=== PATIENT | male | born 1950 | race Caucasian/White ===

== ENCOUNTER 2017-07-07 17:52 | Observation (INO) | payer OTHER ==
[~2017-07-07] VITALS: Ht 190.5 cm; Wt 125.0 kg
[2017-07-07] VITALS (7 sets, daily range): BP systolic 120–184; BP diastolic 71–104; PULSE 66–82; RESP 14–18; TEMP 98.2–98.5; O2SAT 95–100
[2017-07-07] MEDS ORDERED: HYDR25TA5 PO (18:05)
[2017-07-07] MEDS ORDERED: INDO50CA PO (18:05)
[2017-07-07] MEDS ORDERED: ATEN50TA PO (18:05)
--- NOTE | 2017-07-07 18:13 | PD ---
HPI Chief Complaint: Chest Pain Time Seen by Provider: 18:00 Travel History International Travel<30 days: No Contact w/Intl Traveler<30days: No Traveled to known affect area: No History of Present Illness HPI 66yo M with PMH of HLD, HTN was sent from primary care physician's office for evaluation of chest pain. Pt has been having intermittent midsternal chest pain for 2 weeks. Cannot really describe it but lasts about 15-20 min at a time. Associated with nausea and diaphoresis. No exacerbating or alleviating factors. Said they did an EKG at PMD's office and one of leads was flipped and concerning. Denies any fever but felt warm. Denies any sob, vomiting, abdominal pain, focal weakness or numbness. 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 Never had stress test. Did not take aspirin. PFSH Past Medical History Diminished Hearing: No Gout: Yes Hypertension: Yes Influenza Vaccination: No ?: Not Social History Alcohol Use: Yes (daily) Tobacco Use: No (dips) Allergies-Medications (Allergen,Severity, Reaction): Coded Allergies: bupropion (Verified Allergy, Severe, 07/07/17) propoxyphene (Verified Allergy, Severe, 07/07/17) Reported Meds & Prescriptions Reported Meds & Active Scripts Active Reported Indomethacin 50 Mg Cap 50 Mg PO TID Take with food, milk, or antacids to decrease stomach adverse effects. Atenolol 50 Mg Tab 50 Mg PO DAILY Hydrochlorothiazide 25 Mg Tab 25 Mg PO DAILY Review of Systems Except as stated in HPI: all other systems reviewed are Neg Physical Exam Narrative GENERAL: 66yo M in mild distress. SKIN: Focused skin assessment warm/dry. HEAD: Atraumatic. Normocephalic. EYES: Pupils equal and round. No scleral icterus. No injection or drainage. ENT: No nasal bleeding or discharge. Mucous membranes pink and moist. NECK: Trachea midline. No JVD. CARDIOVASCULAR: Regular rate and rhythm. No murmur appreciated. RESPIRATORY: No accessory muscle use. Clear to auscultation. Breath sounds equal bilaterally. GASTROINTESTINAL: Abdomen soft, non-tender, nondistended. MUSCULOSKELETAL: No obvious deformities. No clubbing. No cyanosis. No edema. NEUROLOGICAL: Awake and alert. No obvious cranial nerve deficits. Motor grossly within normal limits. Normal speech. PSYCHIATRIC: Appropriate mood and affect; insight and judgment normal. Data Data Last Documented VS Vital Signs Date Time Temp Pulse Resp B/P (MAP) Pulse Ox O2 Delivery O2 Flow Rate FiO2 07/07/17 23:00 98.5 66 14 127/83 (98) 96 Room Air Orders Orders Basic Metabolic Panel (Bmp) (07/07/17 18:07) Complete Blood Count With Diff (07/07/17 18:07) Magnesium (Mg) (07/07/17 18:07) Prothrombin Time / Inr (Pt) (07/07/17 18:07) Act Partial Throm Time (Ptt) (07/07/17 18:07) Troponin I (07/07/17 18:07) Lipase (07/07/17 18:07) Chest, Single Ap (07/07/17 18:07) Ecg Monitoring (07/07/17 18:07) Bilateral Bp Monitoring (07/07/17 18:07) Iv Access Insert/Monitor (07/07/17 18:07) Oximetry (07/07/17 18:07) Oxygen Administration (07/07/17 18:07) Aspirin (Aspirin) (07/07/17 18:15) Sodium Chloride 0.9% Flush (Ns Flush) (07/07/17 18:15) Nitroglycerin Sl (Nitrostat Sl) (07/07/17 18:15) Electrocardiogram (07/07/17 17:58) Ketorolac Inj (Toradol Inj) (07/07/17 20:00) Pantoprazole Inj (Protonix Inj) (07/07/17 20:00) Sodium Chlor 0.9% 250 Ml Inj (Ns 250 Ml (07/07/17 20:00) D-Dimer (07/07/17 20:00) Troponin I (07/07/17 22:38) Ckmb (Isoenzyme) Profile (07/07/17 22:38) Admit Order (Ed Use Only) (07/07/17 ) Gambling Box Person / Telemetry WILFRED.Q8H (07/07/17 22:56) Activity Oob With Assistance (07/07/17 22:56) Notify Dr: Other (07/07/17 22:56) Activity Bed Rest With Brp (07/07/17 22:56) Vital Signs (Adult) Q4H (07/07/17 22:56) Cardiac Rhythm .As Directed (07/07/17 22:56) Notify Dr: Other .PRN (07/07/17 22:56) Notify Parameters (07/07/17 22:56) Resp Oxygen Nasal Cannula (07/07/17 ) Ckmb (Isoenzyme) Profile (07/08/17 02:00) Ckmb (Isoenzyme) Profile (07/08/17 05:00) Troponin I (07/08/17 02:00) Troponin I (07/08/17 05:00) Electrocardiogram (07/07/17 22:56) Electrocardiogram (07/08/17 01:56) ^ Obtain (07/07/17 22:56) Sodium Chloride 0.9% Flush (Ns Flush) (07/07/17 23:00) Sodium Chloride 0.9% Flush (Ns Flush) (07/08/17 09:00) Nitroglycerin Sl (Nitrostat Sl) (07/07/17 23:00) Aspirin (Aspirin) (07/08/17 09:00) Gambling Box Person / Telemetry WILFRED.Q8H (07/07/17 22:56) ^ For Further Orders (07/07/17 22:56) CKMB (07/07/17 23:00) CKMB% (07/07/17 23:00) CKMB (07/08/17 01:45) CKMB% (07/08/17 01:45) CKMB (07/08/17 05:35) CKMB% (07/08/17 05:35) Labs Laboratory Tests Test 07/07/17 18:10 07/07/17 20:00 07/07/17 23:00 White Blood Count 8.2 TH/MM3 Red Blood Count 5.41 MIL/MM3 Hemoglobin 16.8 GM/DL Hematocrit 49.5 % Mean Corpuscular Volume 91.4 FL Mean Corpuscular Hemoglobin 31.1 PG Mean Corpuscular Hemoglobin Concent 34.0 % Red Cell Distribution Width 13.2 % Platelet Count 163 TH/MM3 Mean Platelet Volume 6.5 FL Neutrophils (%) (Auto) 77.6 % Lymphocytes (%) (Auto) 12.0 % Monocytes (%) (Auto) 6.0 % Eosinophils (%) (Auto) 1.2 % Basophils (%) (Auto) 3.2 % Neutrophils # (Auto) 6.3 TH/MM3 Lymphocytes # (Auto) 1.0 TH/MM3 Monocytes # (Auto) 0.5 TH/MM3 Eosinophils # (Auto) 0.1 TH/MM3 Basophils # (Auto) 0.3 TH/MM3 CBC Comment DIFF FINAL Differential Comment Blood Urea Nitrogen 25 MG/DL Creatinine 1.60 MG/DL Random Glucose 118 MG/DL Calcium Level 10.0 MG/DL Magnesium Level 2.2 MG/DL Sodium Level 138 MEQ/L Potassium Level 3.9 MEQ/L Chloride Level 104 MEQ/L Carbon Dioxide Level 24.5 MEQ/L Anion Gap 10 MEQ/L Estimat Glomerular Filtration Rate 44 ML/MIN Troponin I LESS THAN 0.02 NG/ML LESS THAN 0.02 NG/ML Lipase 170 U/L Prothrombin Time 10.5 SEC Prothromb Time International Ratio 1.0 RATIO Activated Partial Thromboplast Time 28.3 SEC D-Dimer Quantitative (PE/DVT) 0.26 MG/L FEU Total Creatine Kinase 263 U/L Creatine Kinase MB 5.1 NG/ML MDM Medical Decision Making Medical Screen Exam Complete: Yes Emergency Medical Condition: Yes Interpretation(s) EKG: NSR 76bpm. Normal axis. ?Q wave III. TWI III. Differential Diagnosis ACS vs. hypertensive emergency vs. pneumonia vs. GERD Narrative Course 66yo M with HTN and HLD here with chest pain that has been intermittent for 2 weeks. Patient given aspirin and sublingual nitro PRN chest pain. Sign out to next team to follow up labs, CXR and admit for chest pain center if enzymes negative. Diagnosis Primary Impression: Chest pain Qualified Codes: R07.9 - Chest pain, unspecified Admitting Information Admitting Physician Requests: Beth Pereira DO Jul 07, 2017 18:13
[2017-07-07] MEDS ORDERED: SODIUM CHLORIDE 0.9% FLUSH 10 ML FLUSH IVF PRN (18:15)
[2017-07-07] MEDS ORDERED: ASPIRIN 325 MG TAB PO ONE (18:15)
[2017-07-07 18:22] LABS: AUTOMATED NEUTROPHIL # 6.3 TH/MM3 (1.8-7.7); BASOPHIL # 0.3 TH/MM3 (0-0.2); BASOPHIL % 3.2 % (0.0-2.0); EOSINOPHIL # 0.1 TH/MM3 (0-0.4); EOSINOPHIL % 1.2 % (0.0-4.0); HEMATOCRIT 49.5 % (39.0-51.0); HEMOGLOBIN 16.8 GM/DL (13.0-17.0); MEAN CELL VOLUME 91.4 FL (80.0-100.0); MEAN CORPUSCULAR HEMOGLOBIN 31.1 PG (27.0-34.0); MEAN PLATELET VOLUME 6.5 FL (7.0-11.0); MONOCYTE # 0.5 TH/MM3 (0-0.9); NEUT % 77.6 % (16.0-70.0); PLATELET COUNT 163 TH/MM3 (150-450); RED BLOOD COUNT 5.41 MIL/MM3 (4.50-5.90); RED CELL DISTRIBUTION WIDTH 13.2 % (11.6-17.2); WHITE BLOOD COUNT 8.2 TH/MM3 (4.0-11.0)
[2017-07-07] MEDS: NITROGLYCERIN 0.4 MG SL 25 TABS/BTL SL SCH ×3 (18:25→18:35)
[2017-07-07 18:47] LABS: CHLORIDE 104 MEQ/L (98-107); SODIUM (NA) 138 MEQ/L (136-145)
[2017-07-07 18:50] LABS: BICARBONATE 24.5 MEQ/L (21.0-32.0); BLOOD UREA NITROGEN 25 MG/DL (7-18); GLUCOSE,RANDOM 118 MG/DL (74-106); LIPASE 170 U/L (73-393); MAGNESIUM 2.2 MG/DL (1.5-2.5)
[2017-07-07 18:53] LABS: GLOMERULAR FILTRATION RATE 44 ML/MIN (>89)
[2017-07-07 18:58] LABS: TROPONIN I LESS THAN 0.02 NG/ML (0.02-0.05)
--- NOTE | 2017-07-07 19:13 | RADRPT ---
EXAM DATE/TIME: 07/07/2017 18:46 [facility] COMPARISON: No previous studies available for comparison. INDICATIONS : Chest pain. MEDICAL HISTORY : Hypertension. SURGICAL HISTORY : None. ENCOUNTER: Initial ACUITY: 1 day PAIN SCORE: 6/10 LOCATION: Bilateral chest FINDINGS: A single view of the chest demonstrates the lungs to be symmetrically aerated without evidence of mas s, infiltrate or effusion. The cardiomediastinal contours are unremarkable. Osseous structures are intact. CONCLUSION: No acute disease. Pedro Luis Mitchell MD on July 07, 2017 at 19:11 Board Certified Radiologist. This report was verified electronically.
--- NOTE | 2017-07-07 19:43 | PD ---
Physical Exam Date Seen by Provider: Jul 07, 2017 Time Seen by Provider: 19:41 Narrative Accepted in transfer of care from Dr. Nunez GENERAL: Well developed well-nourished male in no acute distress no respiratory distress SKIN: Warm and dry. NECK: Supple, trachea midline. No JVD or lymphadenopathy. CARDIOVASCULAR: Regular rate and rhythm without murmurs, gallops, or rubs. RESPIRATORY: Breath sounds equal bilaterally. No accessory muscle use. Data Data Last Documented VS Vital Signs Date Time Temp Pulse Resp B/P (MAP) Pulse Ox O2 Delivery O2 Flow Rate FiO2 07/07/17 23:00 98.5 66 14 127/83 (98) 96 Room Air Orders Orders Basic Metabolic Panel (Bmp) (07/07/17 18:07) Complete Blood Count With Diff (07/07/17 18:07) Magnesium (Mg) (07/07/17 18:07) Prothrombin Time / Inr (Pt) (07/07/17 18:07) Act Partial Throm Time (Ptt) (07/07/17 18:07) Troponin I (07/07/17 18:07) Lipase (07/07/17 18:07) Chest, Single Ap (07/07/17 18:07) Ecg Monitoring (07/07/17 18:07) Bilateral Bp Monitoring (07/07/17 18:07) Iv Access Insert/Monitor (07/07/17 18:07) Oximetry (07/07/17 18:07) Oxygen Administration (07/07/17 18:07) Aspirin (Aspirin) (07/07/17 18:15) Sodium Chloride 0.9% Flush (Ns Flush) (07/07/17 18:15) Nitroglycerin Sl (Nitrostat Sl) (07/07/17 18:15) Electrocardiogram (07/07/17 17:58) Ketorolac Inj (Toradol Inj) (07/07/17 20:00) Pantoprazole Inj (Protonix Inj) (07/07/17 20:00) Sodium Chlor 0.9% 250 Ml Inj (Ns 250 Ml (07/07/17 20:00) D-Dimer (07/07/17 20:00) Troponin I (07/07/17 22:38) Ckmb (Isoenzyme) Profile (07/07/17 22:38) Electrocardiogram (07/07/17 ) Admit Order (Ed Use Only) (07/07/17 ) Account Services Analyst / Telemetry WILFRED.Q8H (07/07/17 22:56) Activity Oob With Assistance (07/07/17 22:56) Notify Dr: Other (07/07/17 22:56) Activity Bed Rest With Brp (07/07/17 22:56) Vital Signs (Adult) Q4H (07/07/17 22:56) Cardiac Rhythm .As Directed (07/07/17 22:56) Notify Dr: Other .PRN (07/07/17 22:56) Notify Parameters (07/07/17 22:56) Resp Oxygen Nasal Cannula (07/07/17 ) Ckmb (Isoenzyme) Profile (07/08/17 02:00) Ckmb (Isoenzyme) Profile (07/08/17 05:00) Troponin I (07/08/17 02:00) Troponin I (07/08/17 05:00) Electrocardiogram (07/07/17 22:56) Electrocardiogram (07/08/17 01:56) ^ Obtain (07/07/17 22:56) Sodium Chloride 0.9% Flush (Ns Flush) (07/07/17 23:00) Sodium Chloride 0.9% Flush (Ns Flush) (07/08/17 09:00) Nitroglycerin Sl (Nitrostat Sl) (07/07/17 23:00) Aspirin (Aspirin) (07/08/17 09:00) Account Services Analyst / Telemetry WILFRED.Q8H (07/07/17 22:56) ^ For Further Orders (07/07/17 22:56) CKMB (07/07/17 23:00) CKMB% (07/07/17 23:00) Labs Laboratory Tests Test 07/07/17 18:10 07/07/17 20:00 07/07/17 23:00 White Blood Count 8.2 TH/MM3 Red Blood Count 5.41 MIL/MM3 Hemoglobin 16.8 GM/DL Hematocrit 49.5 % Mean Corpuscular Volume 91.4 FL Mean Corpuscular Hemoglobin 31.1 PG Mean Corpuscular Hemoglobin Concent 34.0 % Red Cell Distribution Width 13.2 % Platelet Count 163 TH/MM3 Mean Platelet Volume 6.5 FL Neutrophils (%) (Auto) 77.6 % Lymphocytes (%) (Auto) 12.0 % Monocytes (%) (Auto) 6.0 % Eosinophils (%) (Auto) 1.2 % Basophils (%) (Auto) 3.2 % Neutrophils # (Auto) 6.3 TH/MM3 Lymphocytes # (Auto) 1.0 TH/MM3 Monocytes # (Auto) 0.5 TH/MM3 Eosinophils # (Auto) 0.1 TH/MM3 Basophils # (Auto) 0.3 TH/MM3 CBC Comment DIFF FINAL Differential Comment Blood Urea Nitrogen 25 MG/DL Creatinine 1.60 MG/DL Random Glucose 118 MG/DL Calcium Level 10.0 MG/DL Magnesium Level 2.2 MG/DL Sodium Level 138 MEQ/L Potassium Level 3.9 MEQ/L Chloride Level 104 MEQ/L Carbon Dioxide Level 24.5 MEQ/L Anion Gap 10 MEQ/L Estimat Glomerular Filtration Rate 44 ML/MIN Troponin I LESS THAN 0.02 NG/ML LESS THAN 0.02 NG/ML Lipase 170 U/L Prothrombin Time 10.5 SEC Prothromb Time International Ratio 1.0 RATIO Activated Partial Thromboplast Time 28.3 SEC D-Dimer Quantitative (PE/DVT) 0.26 MG/L FEU Total Creatine Kinase 263 U/L MDM Medical Record Reviewed: Yes Supervised Visit with VIOLETTA: No Interpretation(s) D-dimer: 0.26, not elevated Troponin I: Less than 0.02, not elevated Last Impressions Chest X-Ray 07/07/17 180 Signed Impressions: Service Date/Time: Friday, July 07, 2017 18:46 - CONCLUSION: No acute disease. Pedro Luis Mitchell MD CBC & BMP Diagram 07/07/17 18:10 Calcium Level 10.0, Magnesium Level 2.2 Vital Signs Date Time Temp Pulse Resp B/P (MAP) Pulse Ox O2 Delivery O2 Flow Rate FiO2 07/07/17 23:00 98.5 66 14 127/83 (98) 96 Room Air 07/07/17 19:00 14 07/07/17 18:40 82 17 120/71 (87) 95 Room Air 07/07/17 18:35 79 17 145/74 (97) 97 Room Air 07/07/17 18:30 80 17 139/71 (93) 97 Room Air 07/07/17 18:25 75 17 168/98 (121) 97 Room Air 07/07/17 18:13 75 18 167/103 (124) 100 Room Air 07/07/17 18:12 100 Room Air 07/07/17 18:08 98.2 79 18 184/104 (130) 100 Differential Diagnosis Accepted in transfer of care from Dr. Nunez; please refer to her dictation Narrative Course Accepted in transfer of care from Dr. Nunez; plan for [facility] obs admission labs pending Is 7:40 PM patient continues to complain of 4/10 chest discomfort that is a constant pain since 11 AM for significant cardiac enzymes are found to be in normal range patient has been having similar symptoms on and off for 2 weeks and also complains of a charley horse-like discomfort to left side of his chest since last 2-5 minutes and resolved spontaneously. Patient has had some associated nausea no referred neck jaw back shoulder or mid scapular abdominal pain. Patient's had no vomiting or sweats. Patient has been recently symptomatic with sinus infection. Patient's had subjective fever. Patient denies any cough. Patient does not currently have any shortness of breath and has had no hemoptysis. No recent long distance travel protracted bedrest her surgical procedure. Patient's had no calf pain or swelling. Patient administered one time dose of Toradol 30 mg IV Protonix 3 mg IV; patient's d- dimer is pending. @ 8:45 PM pain has diminished D-dimer not elevated patient's case discussed with on-call [facility] for 23 hr [facility] obs admission Physician Communication Physician Communication discussed with Dr Fuentes Diagnosis Primary Impression: Chest pain Additional Impression: Renal insufficiency Admitting Information Admitting Physician Requests: Observation Catherine Moore MD Jul 07, 2017 19:43
[2017-07-07] MEDS ORDERED: PANTOPRAZOLE SODIUM 40 MG VIAL IV PUSH ONE (20:00)
[2017-07-07] MEDS ORDERED: KETOROLAC TROMETHAMINE 30 MG/ML (IVP) VIAL IV PUSH ONE (20:00)
[2017-07-07] MEDS ORDERED: SODIUM CHLOR 0.9% 250 ML INJ 250 ML IV ONE (20:00)
--- NOTE | 2017-07-07 21:26 | EKG ---
Date Performed: 07/07/2017 Time Performed: 17:58:07 PTAGE: 66 years EKG: Sinus rhythm NORMAL ECG NO PREVIOUS TRACING DOCTOR: Jovan Newell Interpretating Date/Time 07/07/2017 21:25:44
--- NOTE | 2017-07-07 21:26 | EKG ---
Date Performed: 07/07/2017 Time Performed: 17:58:07 PTAGE: 66 years EKG: Sinus rhythm NORMAL ECG NO PREVIOUS TRACING DOCTOR: Jovan Newell Interpretating Date/Time 07/07/2017 21:25:44
--- NOTE | 2017-07-07 21:26 | EKG ---
Date Performed: 07/07/2017 Time Performed: 17:58:07 PTAGE: 66 years EKG: Sinus rhythm NORMAL ECG NO PREVIOUS TRACING DOCTOR: Jovan Newell Interpretating Date/Time 07/07/2017 21:25:44
[2017-07-07 21:32] LABS: D-DIMER 0.26 MG/L FEU (0.00-0.50); PROTHROMBIN TIME - PATIENT 10.5 SEC (9.8-11.6)
[2017-07-07] MEDS ORDERED: SODIUM CHLORIDE 0.9% FLUSH 10 ML FLUSH IV FLUSH PRN (23:00)
[2017-07-07] MEDS ORDERED: NITROGLYCERIN 0.4 MG SL 25 TABS/BTL SL PRN (23:00)
[2017-07-07 23:36] LABS: TROPONIN I LESS THAN 0.02 NG/ML (0.02-0.05)
[2017-07-08] VITALS: BP 142/85; PULSE 70; RESP 18; TEMP 97.3; O2SAT 97
[2017-07-08 00:32] VITALS: PULSE 72
[2017-07-08 02:00] VITALS: O2SAT 96
[2017-07-08 02:14] LABS: TROPONIN I LESS THAN 0.02 NG/ML (0.02-0.05)
[2017-07-08 04:00] VITALS: BP 123/59; PULSE 65; RESP 18; TEMP 96.4; O2SAT 96
[2017-07-08 06:49] LABS: TROPONIN I LESS THAN 0.02 NG/ML (0.02-0.05)
[2017-07-08 08:00] VITALS: BP 133/79; PULSE 81; RESP 18; TEMP 97.5; O2SAT 96
[2017-07-08] MEDS ORDERED: SODIUM CHLORIDE 0.9% FLUSH 10 ML FLUSH IV FLUSH SCH (09:00)
[2017-07-08] MEDS ORDERED: ASPIRIN 325 MG TAB PO SCH (09:00)
--- NOTE | 2017-07-08 09:46 | HHI.HP ---
[facility] Service [facility] [place] Primary Care Physician Bacilio Colbert MD Admission Diagnosis Chest pain Diagnoses: (1) Chest pain Chief Complaint: Chest pain Travel History International Travel<30 Days: No Contact w/Intl Traveler <30 Da: No Traveled to Known Affected Are: No History of Present Illness Mr. Reinoso is a 66-year-old male patient with a known medical history of hypertension, hyperlipidemia, gout and alcohol use who presented to the ED with complaints of chest pain. Patient states that the chest pain has been on and off for the last 2 weeks and since he had an appointment with his PCP scheduled for yesterday he decided to put off coming to the ED. While being seen in his PCP office he was in apparent distress and sent here for evaluation. Patient states that the chest pain can be described in two ways. At times the pain can be located in his midsternal chest, a 1/10 on pain scale, pressure-like in nature and intermittently comes and goes. The other type of pain in located in his left chest area, described as a "leonora horse" and "way deep inside my chest pain". Comes on randomly, mostly at rest, for 2-5 minutes and slowly goes away. Denies any radiation of pain. Does admit to associated diaphoresis and shortness of breath, denies any nausea or vomiting. Denies any recent changes in his medications. Denies any recent illness including fever, chills, headache , cough, abdominal pain, nausea, vomiting, diarrhea or dysuria. Denies any prior cardiac stress testing. Denies ever seeing a underwriting manager or ever having this type of pain in the past. Does admit to having increased cholesterol but has not been prescribed any medications for this. As well as having possible borderline DM but this has not been diagnosed. Review of Systems Constitutional: DENIES: Fever Endocrine: DENIES: Polyuria Respiratory: DENIES: Cough, Shortness of breath Cardiovascular: COMPLAINS OF: Chest pain, Palpitations Gastrointestinal: DENIES: Abdominal pain, Constipation, Diarrhea, Nausea, Vomiting Genitourinary: DENIES: Urinary incontinence, Dysuria Musculoskeletal: DENIES: Joint pain Psychiatric: COMPLAINS OF: Anxiety Except as stated in HPI: all other systems reviewed are Neg Past Family Social History Past Medical History Hypertension Hyperlipidemia Gout Possible borderline diabetes Past Surgical History Cholecystectomy Reported Medications Active Reported Indomethacin 50 Mg Cap 50 Mg PO TID Take with food, milk, or antacids to decrease stomach adverse effects. Atenolol 50 Mg Tab 50 Mg PO DAILY Hydrochlorothiazide 25 Mg Tab 25 Mg PO DAILY Allergies: Coded Allergies: bupropion (Verified Allergy, Severe, 07/07/17) propoxyphene (Verified Allergy, Severe, 07/07/17) Active Ordered Medications Current Medications Medications (Trade) Dose Ordered Sig/Redd Route Start Time Stop Time Status Last Admin (NS Flush) 2 ml UNSCH PRN IV FLUSH 07/07/17 23:00 (NS Flush) 2 ml BID IV FLUSH 07/08/17 09:00 (Nitrostat Sl) 0.4 mg Q5M PRN SL 07/07/17 23:00 (Aspirin) 325 mg DAILY PO 07/08/17 09:00 Family History Family medical history significant for hypertension. Social History Does admit to drinking a few beers and some whiskey daily. Does admit to chewing tobacco daily. Denies any cigarette use. Denies any illicit drug use. Physical Exam Vital Signs Vital Signs Date Time Temp Pulse Resp B/P (MAP) Pulse Ox O2 Delivery O2 Flow Rate FiO2 07/08/17 08:00 97.5 81 18 133/79 (97) 96 07/08/17 04:00 96.4 65 18 123/59 (80) 96 07/08/17 02:00 96 21 07/08/17 00:32 72 07/08/17 00:00 97.3 70 18 142/85 (104) 97 07/07/17 23:37 07/07/17 23:02 14 07/07/17 23:00 98.5 66 14 127/83 (98) 96 Room Air 07/07/17 19:00 14 07/07/17 18:40 82 17 120/71 (87) 95 Room Air 07/07/17 18:35 79 17 145/74 (97) 97 Room Air 07/07/17 18:30 80 17 139/71 (93) 97 Room Air 07/07/17 18:25 75 17 168/98 (121) 97 Room Air 07/07/17 18:13 75 18 167/103 (124) 100 Room Air 07/07/17 18:12 100 Room Air 07/07/17 18:08 98.2 79 18 184/104 (130) 100 Physical Exam GENERAL: This is a well-nourished, well-developed male patient, lying in bed in no apparent distress. SKIN: No rashes, ecchymoses or lesions. Warm and dry. HEENT: Atraumatic. Normocephalic. Pupils equal round and reactive. Extraocular motions intact. No scleral icterus. No injection or drainage. Nose without bleeding, purulent drainage or septal hematoma. Throat without erythema, tonsillar hypertrophy or exudate. Uvula midline. Airway patent. NECK: Trachea midline. No JVD. Supple. CARDIOVASCULAR: Regular rate and rhythm without murmurs, gallops, or rubs. RESPIRATORY: Clear to auscultation. Breath sounds equal bilaterally. No wheezes , rales, or rhonchi. GASTROINTESTINAL: Abdomen rounded, soft non-tender, nondistended. No guarding. Active bs x 4. MUSCULOSKELETAL: Extremities without clubbing, cyanosis, or edema. No joint tenderness, effusion, or edema noted. NEUROLOGICAL: Awake and alert. Cranial nerves II through XII intact. Motor and sensory grossly within normal limits. Five out of 5 muscle strength in all muscle groups. Normal speech. Laboratory Laboratory Tests Test 07/07/17 18:10 07/07/17 20:00 07/07/17 23:00 07/08/17 01:45 White Blood Count 8.2 Red Blood Count 5.41 Hemoglobin 16.8 Hematocrit 49.5 Mean Corpuscular Volume 91.4 Mean Corpuscular Hemoglobin 31.1 Mean Corpuscular Hemoglobin Concent 34.0 Red Cell Distribution Width 13.2 Platelet Count 163 Mean Platelet Volume 6.5 Neutrophils (%) (Auto) 77.6 Lymphocytes (%) (Auto) 12.0 Monocytes (%) (Auto) 6.0 Eosinophils (%) (Auto) 1.2 Basophils (%) (Auto) 3.2 Neutrophils # (Auto) 6.3 Lymphocytes # (Auto) 1.0 Monocytes # (Auto) 0.5 Eosinophils # (Auto) 0.1 Basophils # (Auto) 0.3 CBC Comment DIFF FINAL Differential Comment Blood Urea Nitrogen 25 Creatinine 1.60 Random Glucose 118 Calcium Level 10.0 Magnesium Level 2.2 Sodium Level 138 Potassium Level 3.9 Chloride Level 104 Carbon Dioxide Level 24.5 Anion Gap 10 Estimat Glomerular Filtration Rate 44 Troponin I LESS THAN 0.02 LESS THAN 0.02 LESS THAN 0.02 Lipase 170 Prothrombin Time 10.5 Prothromb Time International Ratio 1.0 Activated Partial Thromboplast Time 28.3 D-Dimer Quantitative (PE/DVT) 0.26 Total Creatine Kinase 263 256 Creatine Kinase MB 5.1 5.0 Test 07/08/17 05:35 Total Creatine Kinase 234 Creatine Kinase MB 4.6 Troponin I LESS THAN 0.02 Result Diagram: 07/07/17180907/07/171809 Imaging Last Impressions Chest X-Ray 07/07/171806 Signed Impressions: Service Date/Time: Friday, July 07, 2017 18:46 - CONCLUSION: No acute disease. MD Austin Chan VTE Risk Assessment Austin VTE Risk Assessment: Mod/High Risk (score >= 2) Caprini Risk Assessment Model Point Value = 1 Point Value = 2 Point Value = 3 Point Value = 5 Age 41-60 Minor surgery BMI > 25 kg/m2 Swollen legs Varicose veins or History of unexplained or recurrent spontaneous Oral contraceptives or hormone replacement Sepsis (< 1 month) Serious lung disease, including pneumonia (< 1 month) Abnormal pulmonary function Acute myocardial infarction Congestive heart failure (< 1 month) History of inflammatory bowel disease Medical patient at bed rest Age 61-74 Arthroscopic surgery Major open surgery (> 45 min) Laparoscopic surgery (> 45 min) Malignancy Confined to bed (> 72 hours) Immobilizing plaster cast Central venous access Age >= 75 History of VTE Family history of VTE Factor V Leiden Prothrombin [id number] Lupus anticoagulant Anticardiolipin antibodies Elevated serum homocysteine Heparin-induced thrombocytopenia Other congenital or acquired thrombophilia Stroke (< 1 month) Elective arthroplasty Hip, pelvis, or leg fracture Acute spinal cord injury (< 1 month) Prophylaxis Regimen Total Risk Factor Score Risk Level Prophylaxis Regimen 0-1 Low Early ambulation 2 Moderate Order ONE of the following: *Sequential Compression Device (SCD) *Heparin 5000 units SQ BID 3-4 Higher Order ONE of the following medications: *Heparin 5000 units SQ TID *Enoxaparin/Lovenox 40 mg SQ daily (WT < 150 kg, CrCl > 30 mL/min) *Enoxaparin/Lovenox 30 mg SQ daily (WT < 150 kg, CrCl > 10-29 mL/min) *Enoxaparin/Lovenox 30 mg SQ BID (WT < 150 kg, CrCl > 30 mL/min) AND/OR *Sequential Compression Device (SCD) 5 or more Highest Order ONE of the following medications: *Heparin 5000 units SQ TID (Preferred with Epidurals) *Enoxaparin/Lovenox 40 mg SQ daily (WT < 150 kg, CrCl > 30 mL/min) *Enoxaparin/Lovenox 30 mg SQ daily (WT < 150 kg, CrCl > 10-29 mL/min) *Enoxaparin/Lovenox 30 mg SQ BID (WT < 150 kg, CrCl > 30 mL/min) AND *Sequential Compression Device (SCD) Assessment and Plan Assessment and Plan Mr. Reinoso is a 66-year-old male patient with a known medical history of hypertension, hyperlipidemia, gout and alcohol use who presented to the ED with complaints of chest pain. Patient states that the chest pain has been on and off for the last 2 weeks and since he had an appointment with his PCP scheduled for yesterday he decided to put off coming to the ED. While being seen in his PCP office he was in apparent distress and sent here for evaluation. Chest pain - Admitted to the chest pain center. Serial EKGs and serial troponins ordered to rule out any ischemia. Nuclear stress test ordered and await results. Toradol given in ED with minimal relief of pain. Aspirin and Nitroglycerin given with minimal pain relief. Further treatment course will depend on results of the nuclear images. Continue to follow. Supportive care. Hypertension, chronic: Controlled at this time. Monitor BP trend. Restart home atenolol will hold HCTZ for now due to LIOR. Acute kidney injury: Patient on Indomethacin at home for gout, may be cause. Will start on IVF. Hold indomethacin. History of Gout: Hold home Indomethacin due to LIOR. Alcohol abuse: Encouraged cessation, patient counselled. *Spoke with Dr. Ray information systems security specialist underwriting manager today. Updated about patient status and results of nuclear stress test. Dr. Ray reviewed imaging and shows apical artifact with possible small ischemic area with advice to treat medically, and OK to discharge. Recommendations to follow up in the outpatient setting. Will start on full dose aspirin and nitrate. Encouraged patient to follow up outpatient and avoid any strenuous activity. If chest pain returns encouraged to return to the ED. Encouraged to stop Indomethacin and follow with PCP regarding creatinine. Follow up outpatient labs. Mica Llanos Jul 08, 2017 09:46
--- NOTE | 2017-07-08 11:40 | EKG ---
Date Performed: 07/08/2017 Time Performed: 01:43:35 PTAGE: 66 years EKG: Sinus rhythm BORDERLINE ECG PREVIOUS TRACING : 07/07/2017 22.54 Since previous tracing, no significant change noted DOCTOR: Karsten Lilly Interpretating Date/Time 07/08/2017 11:39:04
--- NOTE | 2017-07-08 11:42 | EKG ---
Date Performed: 07/07/2017 Time Performed: 22:54:36 PTAGE: 66 years EKG: Sinus rhythm NORMAL ECG PREVIOUS TRACING : 07/07/2017 17.58 Since previous tracing, no significant change noted DOCTOR: Karsten Lilly Interpretating Date/Time 07/08/2017 11:40:37
[2017-07-08 12:00] VITALS: BP 131/82; PULSE 77; RESP 17; TEMP 97.8; O2SAT 95
[2017-07-08] MEDS ORDERED: SODIUM CHLOR 0.9% 1000 ML INJ 1,000 ML IV SCH (12:00)
[2017-07-08] MEDS ORDERED: REGADENOSON INJ 0.4 MG/5 ML SYR IV ONE (12:01)
--- NOTE | 2017-07-08 12:37 | RADRPT ---
EXAM DATE/TIME: 07/08/2017 11:13 [place] COMPARISON: No previous studies available for comparison. INDICATIONS : Midsternal chest pain with nausea and diaphoresis. Angina. Abnormal EKG. DOSE: 35 mCi Tc99m Myoview at stress. 11 mCi Tc99m Myoview at rest. 0.4 mg Lexiscan STRESS SYMPTOMS: Chest tightness. EJECTION FRACTION: 52% MEDICAL HISTORY : Hypertension. SURGICAL HISTORY : Cholecystectomy. ENCOUNTER: Initial ACUITY: 2 weeks PAIN SCALE: 6/10 LOCATION: Midsternal chest TECHNIQUE: The patient underwent pharmacologic stress with infusion of prescribed dose. Continuous ECG tracing was monitored during stress. Gated SPECT imaging was performed after stress and conventional SPECT i maging was performed at rest. The examination was performed on a SPECT/CT scanner, both attenuation and non-corrected datasets were reviewed. FINDINGS: DISTRIBUTION: The maximum perfused segment at stress is in the anterior lateral wall. PERFUSION STUDY: There is a small perfusion defect involving the apex on the stress images which demonstrates perfusio n on the rest images. GATED STUDY: There is intact wall motion and thickening without hypokinetic or dyskinetic segments. CONCLUSION: 1. Small focal reversible defect involving the apex which could indicate a small area of ischemia. 2. Normal wall motion and calculated ejection fraction. RISK CATEGORY: Intermediate (1-3% Annual Mortality Rate) Pedro Luis Mitchell MD on July 08, 2017 at 12:33 Board Certified Radiologist. This report was verified electronically.
--- NOTE | 2017-07-08 13:28 | HHI.DCPOC ---
Discharge Care Plan Diagnosis: (1) Chest pain (2) Renal insufficiency Your Health Problems Are: Chest Pain Goals to Promote Your Health * To prevent worsening of your condition and complications * To maintain your health at the optimal level Directions to Meet Your Goals Take your medications as prescribed Follow your dietary instruction Follow activity as directed Keep your appointments as scheduled Take your immunizations and boosters as scheduled If your symptoms worsen call your PCP, if no PCP go to Urgent Care Center or Emergency Room Smoking is Dangerous to Your Health. Avoid second hand smoke Call the 24-hour hour crisis hotline for domestic abuse at Mica Llanos Jul 08, 2017 13:28
--- NOTE | 2017-07-08 13:28 | HHI.DCPOC ---
Discharge Care Plan Diagnosis: (1) Chest pain (2) Renal insufficiency Your Health Problems Are: Chest Pain Goals to Promote Your Health * To prevent worsening of your condition and complications * To maintain your health at the optimal level Directions to Meet Your Goals Take your medications as prescribed Follow your dietary instruction Follow activity as directed Keep your appointments as scheduled Take your immunizations and boosters as scheduled If your symptoms worsen call your PCP, if no PCP go to Urgent Care Center or Emergency Room Smoking is Dangerous to Your Health. Avoid second hand smoke Call the 24-hour hour crisis hotline for domestic abuse at Mica Llanos Jul 08, 2017 13:28
--- NOTE | 2017-07-08 13:28 | HHI.DCPOC ---
Discharge Care Plan Diagnosis: (1) Chest pain (2) Renal insufficiency Your Health Problems Are: Chest Pain Goals to Promote Your Health * To prevent worsening of your condition and complications * To maintain your health at the optimal level Directions to Meet Your Goals Take your medications as prescribed Follow your dietary instruction Follow activity as directed Keep your appointments as scheduled Take your immunizations and boosters as scheduled If your symptoms worsen call your PCP, if no PCP go to Urgent Care Center or Emergency Room Smoking is Dangerous to Your Health. Avoid second hand smoke Call the 24-hour hour crisis hotline for domestic abuse at Mica Llanos Jul 08, 2017 13:28
[2017-07-08] MEDS ORDERED: NITR0.4S SL (13:30)
[2017-07-08] MEDS ORDERED: ISOS60TA PO (13:30)
[2017-07-08] MEDS ORDERED: ASPI325T PO (13:30)
[2017-07-08] MEDS ORDERED: ATOR40TA16 PO (13:30)
[2017-07-08 16:06] LABS: CHOLESTEROL/ HDL RATIO 4.08 RATIO; HDL CHOLESTEROL 45.3 MG/DL (40.0-60.0)
[2017-07-08] MEDS ORDERED: ATORVASTATIN 40 MG TAB PO SCH (21:00)
[2017-07-09] MEDS ORDERED: ISOSORBIDE MONONITRATE 60 MG TAB PO SCH (07:00)
[2017-07-09] MEDS ORDERED: ATENOLOL 50 MG TAB PO SCH (09:00)
[2017-07-09] MEDS ORDERED: HYDROCHLOROTHIAZIDE 25 MG TAB PO SCH (09:00)
--- NOTE | 2017-07-13 09:06 | TR ---
Date Performed: 07/08/2017 Time Performed: 11:40:16 DOCTOR: Karsten Lilly DRUG LIST: CLINICAL HISTORY: CHEST PAIN REASON FOR TEST: Chest pain REASON FOR ENDING: OBSERVATION: CONCLUSION: Lexiscan stress test was performed under standard four minute protocol. Radionuclid e was injected one minute prior to ending the test. No electrocardiographic abormalities were present to suggest ischemia. Nuclear imaging and interpretation are pending. COMMENTS:
== END 2017-07-08 15:49 | disposition home or self-care (01) ==
LOC: PHED 17:52 → PHEDA 23:00 → PH3B 23:45
PROVIDERS: ADMIT Family Medicine; ATTEND Family Medicine
DX: R07.2 Precordial pain (principal); I10 Essential (primary) hypertension; N17.9 Acute kidney failure, unspecified; M10.9 Gout, unspecified; F10.10 Alcohol abuse, uncomplicated; R61 Generalized hyperhidrosis; R11.0 Nausea; E78.5 Hyperlipidemia, unspecified; G47.30 Sleep apnea, unspecified
CPT/HCPCS: 71010; 78452; 80048; 80061; 82550; 82552; 83690; 83735; 84484; 85025; 85379; 85610; 85730; 93005; 93017; 96361; 96374; 96375; 96376; 99285; A9502; C9113; G0378; J1885; J2785; J7030; J7050

== ENCOUNTER 2017-07-21 11:57 | Day surgery (SDC) | payer OTHER ==
[~2017-07-21] VITALS: Ht 190.5 cm; Wt 125.5 kg
[~2017-07-21 11:57] MED LIST: ASPI-183 PO; ATEN50TA PO; ATOR40TA16 PO; ISOS60TA PO; NITR0.4S SL
[2017-07-21] MEDS ORDERED: IOHEXOL 350 MG/ML 50 ML BTL (for Cath Lab) OTHER ONE (11:58)
[2017-07-21 12:40] VITALS: BP 139/81; PULSE 79; RESP 18; TEMP 97.9; O2SAT 99
[2017-07-21] MEDS ORDERED: OMEP20TA93 PO (12:48)
[2017-07-21] MEDS ORDERED: INDO50CA PO (12:48)
[2017-07-21] MEDS ORDERED: HYDR25TA5 PO (12:48)
[2017-07-21] MEDS ORDERED: LOSA50TA PO (12:48)
[2017-07-21] MEDS ORDERED: CLAR10CA3 PO (12:48)
[2017-07-21] MEDS ORDERED: VALS1TAB64 PO (12:48)
[2017-07-21 12:49] LABS: AUTOMATED NEUTROPHIL # 6.4 TH/MM3 (1.8-7.7); BASOPHIL % 0.4 % (0.0-2.0); EOSINOPHIL # 0.2 TH/MM3 (0-0.4); EOSINOPHIL % 1.8 % (0.0-4.0); HEMATOCRIT 40.6 % (39.0-51.0); LYMPH % 13.3 % (9.0-44.0); LYMPHOCYTE # 1.1 TH/MM3 (1.0-4.8); MEAN CELL VOLUME 91.2 FL (80.0-100.0); MEAN CORPUSCULAR HEMOGLOBIN 32.8 PG (27.0-34.0); MONO % 6.9 % (0.0-8.0); NEUT % 77.6 % (16.0-70.0); PLATELET COUNT 177 TH/MM3 (150-450); RED BLOOD COUNT 4.46 MIL/MM3 (4.50-5.90); RED CELL DISTRIBUTION WIDTH 13.6 % (11.6-17.2); WHITE BLOOD COUNT 8.2 TH/MM3 (4.0-11.0)
[2017-07-21 12:55] LABS: HEMO FLAGS AUTO DIFF
[2017-07-21] MEDS ORDERED: NS 1000P @30 MLS/HR (KVO) IV SCH (13:00)
[2017-07-21 13:02] LABS: PROTHROMBIN TIME - PATIENT 10.5 SEC (9.8-11.6)
[2017-07-21 13:06] LABS: BICARBONATE 25.6 MEQ/L (21.0-32.0); POTASSIUM 4.1 MEQ/L (3.5-5.1)
[2017-07-21 13:47] LABS: SCAN/DIFF AUTO DIFF CONFIRMED
[2017-07-21] MEDS ORDERED: MIDAZOLAM HCL 2 MG/2 ML VIAL ONE (13:55)
[2017-07-21] MEDS ORDERED: HEPARIN-NS/PF INJ 500 ML ONE (13:55)
[2017-07-21] MEDS ORDERED: NITROGLYCERIN INJ 5 ML ONE (13:55)
[2017-07-21] MEDS ORDERED: SODIUM CHLOR 0.9% 1000 ML INJ 1,000 ML IV ONE (14:46)
--- NOTE | 2017-07-21 14:56 | CATHPROC ---
[facility] HIS Report Study Information Study Number Admission Scheduled Start Study Start [id number] Jul 21 2017 11:57AM 07/21/2017 Jul 21 2017 1:41PM [facility] Service Cardiac Catheterization Admit Source Facility Department Other [facility] - Perianesthesia Nurse Physician and Clinical Staff Initial Kong Obrien Curtain Cleaner Magdalena Mc RN Recorder Pascual Rivera RCIS(BS) Scrub Roseann Vargas RCIS TECH2 Procedures Performed Procedure Location (Site) Vessel Name Coronary Angiograms LCA Left Coronary Coronary Angiograms RCA Right Coronary L Heart Cath Equipment Time Lead Assistant Manager Description Size Mfg Part Number Used/Scraped TRANSDUCER, TRUWAVE [id number] 13:53 JAMES CHRISTINE * Used W/STOCKCOCK *[id number] 14:40 Nexus eWater MEDICAL VASCADE, FR6 CLOSURE SYSTEM FR 6\7 Used *[id number] *[id number] [id number] *[id number] *[id number] 13:53 MEDLINE INDUSTRIES PACK, CCL CUSTOM * Used *[id number] 13:53 MEDLINE PACER PEN, SKIN DUAL W/ RULER * Used *[id number] 13:53 Hyperactive Media SHEATH, FR6.5 PRELUDE 11CM FR 6.5 038ACT Used *[id number] 13:53 [employer] Media WIRE, 3MMJ .035 180CM 180CM Used *[id number] 13:53 NAMIC MANIFOLD, 4 PORT * Used *[id number] 13:53 NYCOMED OMNIPAQUE, 350 MG, 150ML 150ML [id number] Used DYEVERT, CONTRAST HVOFF-RRS 14:20 [employer] NG Used MODULATION SYSTEM NG *[id number] DYEVERT, CONTRAST HVOFF-RRS 14:25 [employer] NG Used MODULATION SYSTEM NG *[id number] 13:53 [employer] MEDICAL BLANKET,WARM AIR CCL * Used *[id number] History: Current Medications Medication Dosage/Unit Route Frequency Last Date/Time Taken ASA Beta Cynthia Statins (any) History: Allergies Allergy Reaction propoxyphene bupropion History: Risk Factors Family History of Hypertension Dyslipidemia Previous AL Previous Heart Failure Premature CAD Yes Yes Yes No No Prior Valve Prior PCI Prior CABG Surgery No No No Cerebrovascular Peripheral Artery Chronic Lung On Dialysis Diabetes Disease Disease Disease No No No No No History: Stress Tests Stress or Imaging Studies Performed Yes Standard Exercise Stress Test No Stress Echo No Stress Test SPECT Stress Test SPECT Result Stress Test SPECT Ischemia Risk/Extent Yes Positive Intermediate Stress Test CMR No Cardiac CTA Coronary Calcium Score No No History: Other Current Smoker Method Packs a Day Years Used Pack Years No Chew 1 59 59 Labs Hgb (g/dl) Hct (%) WBC (l/cumm) Platelets (thousands) 11.60-17.00 35.00-51.00 4.00-11.00 150.00-450.00 14.6 40.6 8.2 177 Glucose (mg/dl) BUN (mg/dl) Creatinine (mg/dl) BUN:Creatinine (1:x) 74.00-106.00 7.00-18.00 0.50-1.30 10.00-20.00 97 30 1.9 15.8 Na (meq/l) K (meq/l) 136.00-145.00 3.50-5.10 138 4.1 INR (PTT:PT) 0.90-1.10 1 CPK-MB (ng/ML) 0.50-3.60 Not Drawn Medication Medication Total Dose (Bolus/Oral) Medication Total Dosage/Unit 1% XYLOCAINE 20 mL VERSED 2 mg Medications (Bolus/Oral) Medication Time Given Dosage/Unit Administered By Reason VERSED 07/21/2017 2:28:00 PM 2 mg Magdalena Mc 2 mg VERSED given in lab by Magdalena Mc, RN in Left Antecubital via Peripheral IV. Ordered by Kong Carpenter. 1% XYLOCAINE 07/21/2017 2:28:57 PM 20 mL Kong Ray 20 mL 1% XYLOCAINE given in lab by Kong Ray in Right Groin via Subcutaneous. Ordered by Gerardo Ray enn. Medication (Drip) Medication Time Given Dosage/Unit Concentration/Unit Diluent (ml) Solution IV Solutions 07/21/2017 1:42:07 PM 0 mL (IV) 500 NaCl .9 Patient arrived on IV Solutions in Left Antecubital via Peripheral IV. Pump/Drip Flow = 20 ml/hr usin g NaCl .9. Ordered by Kong Ray. Initial Case Assessment Cardiovascular HR Rhythm NIBP Chest Pain 79 SR 125/98 1 Edema Present Skin color Skin None Normal Warm Dry Circulatory - Right Pulses Dorsalis Pedis Femoral 3 2 Scale (0,1,2,3,4,d) Circulatory - Left Pulses Dorsalis Pedis Femoral 3 2 Scale (0,1,2,3,4,d) Circulatory - Lower Extremities Color Lower Right Color Lower Left Normal Normal Neurological State Oriented to time-place- Alert Moves all extremities person Respiration - General Respiration Rate SpO2 (%) (B/min) 19 98 Final Case Assessment Cardiovascular HR Rhythm NIBP Chest Pain 79 SR 125/98 1 Edema Present Skin color Skin None Normal Warm Dry Circulatory - Right Pulses Dorsalis Pedis Femoral 3 2 Scale (0,1,2,3,4,d) Circulatory - Left Pulses Dorsalis Pedis Femoral 3 2 Scale (0,1,2,3,4,d) Circulatory - Lower Extremities Color Lower Right Color Lower Left Normal Normal Neurological State Oriented to time-place- Alert Moves all extremities person Respiration - General Respiration Rate SpO2 (%) (B/min) 19 98 Chronological Log Time Study Chronological Log 13:41:27 Patient arrived via Bed. 13:41:28 Patient Name, D.O.B, / Armband Verified By R.N. 13:41:29 Consent signed by the physician and the patient and verified by the Perianesthesia Nurse staff. 13:41:30 Pre-op and post- op instructions given; patient acknowledges understanding of instructions. 13:41:31 Verbal Stimulation=2 Physical Stimulation=2 Airway=2 Respiration=2 TOTAL=8. (0=absent, 1=li mited, 2=present) 13:41:38 Patient has been NPO for More than 6Hrs. 13:41:39 No Skin Breakdown. 13:41:42 Patient Warmer Placed on the Table. 13:42:00 Presedation assessment performed by Perianesthesia Nurse RN. 13:42:06 A # 20 IV was noted in the Antecubital (left). Grade = 0 Patient arrived on IV Solutions in Left Antecubital via Peripheral IV. Pump/Drip Flow = 20 ml/h r using NaCl .9. Ordered 13:42:07 by Kong Ray. 13:42:08 History and physical on the chart or being dictated. Assessment: Initial Case, HR=79 BPM, Rhythm=SR, BBHG=328/98 mmhg, Chest Pain=1, Edema=None, Col or=Normal, Skin = Warm, Dry Right Pulses: Rafat Ped=3, Femoral=2 Left Pulses: Rafat Ped=3, Femoral=2 13:42:09 Lower Right Extremities: Color=Normal Lower Left Extremities: Color=Normal Neurological: State=Alert, Ox3, RAHMAN Respiration: Resp=19 B/min, SpO2=98 % Vitals capture started with the following parameters, Patient=Adult, Interval=5 min, Initial Pr eclssx=257 mmHg, 13:49:24 Deflation Rate=5 mmHg, Cuff placed on Left Arm 13:50:40 HR=73 bpm, POLX=618/98 mmhg, SpO2=99.0 %, Resp=9 B/min, Pain=1, Julio=10, Hennessy=2 13:55:01 HR=73 bpm, XKVE=942/71 mmhg, BtY3=551.0 %, Resp=10 B/min, Pain=1, Julio=10, Hennessy=2 14:00:02 HR=74 bpm, WWCX=161/76 mmhg, SpO2=99.0 %, Resp=18 B/min, Pain=1, Julio=10, Hennessy=2 14:04:43 Bilateral groins prepped with 2% chlorhexidine, and draped after a 3 min. waiting time. 14:05:03 HR=76 bpm, PVNY=477/81 mmhg, SpO2=96.0 %, Resp=17 B/min, Pain=1, Julio=10, Hennessy=2 14:10:06 HR=72 bpm, IJII=439/68 mmhg, SpO2=98.0 %, Resp=18 B/min, Pain=1, Julio=10, Hennessy=2 14:10:15 Reference ECG taken 14:14:55 Pressure channel 1 zeroed. 14:15:01 HR=72 bpm, ISEH=614/75 mmhg, SpO2=99.0 %, Resp=17 B/min, Pain=1, Julio=10, Hennessy=2 14:17:40 MD paged 14:20:04 HR=78 bpm, HXLO=934/70 mmhg, SpO2=98.0 %, Resp=6 B/min, Pain=1, Julio=10, Hennessy=2 14:25:00 MD arrived. 14:25:03 HR=71 bpm, HYDM=910/74 mmhg, SpO2=98.0 %, Resp=6 B/min 14:28:00 2 mg VERSED given in lab by Magdalena Mc RN in Left Antecubital via Peripheral IV. Orde red by Kong Ray. Time Out. Correct patient, correct procedure, correct physician, power injector not loaded with contrast with surgical 14:28:06 team present. Time Out Concurred by MD and individual staff in procedure. 14:28:23 Case Start 14:28:57 20 mL 1% XYLOCAINE given in lab by Kong Ray in Right Groin via Subcutaneous. Ordered by Kong Ray. 14:29:39 Access site was Right Femoral Artery. 14:30:02 HR=73 bpm, KOPM=990/70 mmhg, SpO2=98.0 %, Resp=32 B/min, Pain=1, Julio=10, Hennessy=2 14:30:15 A SHEATH, FR6.5 PRELUDE 11CM FR 6.5 was advanced into the Fem Art (right) using the Percuta neous technique. A JL 4.0 INFINITI CATHETER FR 6 was advanced over a wire. OMNIPAQUE, 350 MG, 150ML 150ML was us ed for 14:30:24 injections. Recorded Pressure: Ao, HR=73, Condition=Condition 1 14:31:28 (Aorta) Ao 107/62/81 14:31:57 The LCA was injected and visualized at various angles. OMNIPAQUE, 350 MG, 150ML 150ML used . 14:33:04 Catheter was removed A 3DRC INFINITI CATHETER FR 6 was advanced over a wire. OMNIPAQUE, 350 MG, 150ML 150ML was used for 14:33:52 injections. 14:35:03 HR=77 bpm, XMHN=189/64 mmhg, SpO2=97.0 %, Resp=31 B/min, Pain=1, Julio=10, Hennessy=2 14:36:18 Catheter was removed A JR 4.0 INFINITI CATHETER FR 6 was advanced over a wire. OMNIPAQUE, 350 MG, 150ML 150ML was us ed for 14:36:55 injections. 14:38:00 The RCA was injected and visualized at various angles. OMNIPAQUE, 350 MG, 150ML 150ML used . 14:38:27 Catheter was removed 14:38:48 An injection in the Fem Art (right) was made through the SHEATH, FR6.5 PRELUDE 11CM FR 6.5. 14:40:06 HR=80 bpm, QEPD=462/76 mmhg, SpO2=95.0 %, Resp=53 B/min, Pain=1, Julio=10, Hennessy=2 14:40:10 Case End Assessment: Final Case, HR=79 BPM, Rhythm=SR, HSJI=012/98 mmhg, Chest Pain=1, Edema=None, Natoma r=Normal, Skin = Warm, Dry Right Pulses: Rafat Ped=3, Femoral=2 Left Pulses: Rafat Ped=3, Femoral=2 14:40:17 Lower Right Extremities: Color=Normal Lower Left Extremities: Color=Normal Neurological: State=Alert, Ox3, RAHMAN Respiration: Resp=19 B/min, SpO2=98 % 14:40:40 VASCADE, FR6 CLOSURE SYSTEM FR 6\7 placement in the Fem Art (right) 14:41:33 Sterile dressing applied to site 14:41:34 No case complications noted. 14:41:35 Cine recording checked. 14:41:41 Bedside Report will be given. 14:41:45 Contrast Scanned 14:41:48 A Left Heart Cath was performed. 14:41:53 Patient moved to stretcher 14:45:05 HR=72 bpm, WZFJ=864/70 mmhg, SpO2=99.0 %, Resp=7 B/min, Pain=1, Julio=10, Hennessy=2 End Study - Contrast Media Used In Study Contrast Total Opened (mL) Total Used (mL) Total Wasted (mL) Omnipaque 41 41 0 End Study - Maximum Contrast Load Max Contrast Load (mL) 330.3 End Study - Radiation Exposure Fluoro Time (minutes) 3.5 End Study - Patient Disposition Complications Transferred To No Outpatient Bed
[2017-07-21] MEDS ORDERED: ONDANSETRON HCL 4 MG/2 ML VIAL IV PUSH PRN (15:00)
[2017-07-21] MEDS ORDERED: ATROPINE SULFATE 1 MG/ML VIAL IVP PRN (15:00)
[2017-07-21] MEDS ORDERED: SODIUM CHLOR 0.9% 250 ML INJ 250 ML IV PRN (15:00)
--- NOTE | 2017-07-21 15:29 | MA ---
cc: SILVANO JIMENEZ M.D. DATE: 07/21/2017 PROCEDURE Left heart catheterization, selective coronary angiography. PROCEDURE NOTE The patient was brought to the cardiac catheterization laboratory in a fasting state after having signed informed consent. The right groin was prepped and draped as per policy and anesthetized with 1% lidocaine. Arterial access was obtained via the right femoral artery and a 6-Wallisian sheath placed. Coronary arteriography was performed using 6-Wallisian Sondra left 4.0 and right progressive catheters. Left ventriculography was not done due to the patients elevated creatinine. A DyeVert device was used to minimize dye load. There were no apparent immediate complications. His arteriotomy site was closed with Vascade with the achievement of good hemostasis. A total of 40 cc of contrast was used for the case. HEMODYNAMIC RESULTS The aortic valve was crossed briefly with the progressive right catheter demonstrating no significant transvalvular aortic gradient. Aortic pressure is 102/56 with a mean of 70, left ventricle 105 with an end-diastolic pressure of 14. CORONARY ARTERIOGRAPHY The left main is normal. The left anterior descending gives rise to a relatively small diagonal. No definite disease is seen in the LAD system. The left circumflex is a small vessel giving rise to a small to medium sized obtuse marginal. No disease is seen in the left circumflex system. The right coronary artery is a relatively small dominant vessel with no definite disease. LEFT VENTRICULOGRAPHY Not done. CONCLUSION Angiographically normal coronary arteries. MD DREW De Jesus/lalo /3:08 PM /3:24 PM [facility]
--- NOTE | 2017-07-21 21:12 | EKG ---
Date Performed: 07/21/2017 Time Performed: 12:48:16 PTAGE: 66 years EKG: Sinus rhythm . Normal ECG PREVIOUS TRACING : 07/08/2017 01.43 Compared to prior tracing no significant change DOCTOR: Jovan Newell Interpretating Date/Time 07/21/2017 21:10:30
== END 2017-07-21 16:57 | disposition home or self-care (01) ==
LOC: HDIC 11:57 → HDOC 11:57
PROVIDERS: ATTEND Internal Medicine Cardiovascular Disease
DX: I25.10 Atherosclerotic heart disease of native coronary artery without angina pectoris (principal); I10 Essential (primary) hypertension; E78.5 Hyperlipidemia, unspecified
CPT/HCPCS: 80048; 85025; 85610; 85730; 93005; 93454; 99152; C1760; C1769; C1893; G0269; J1644; J2250; J3010; Q9967